=== PATIENT | male | born 1940 | race American Indian/Alaskan Native ===

== ENCOUNTER 2021-11-13 12:06 | Inpatient (IN) | payer MEDICARE ==
[2021-11-13] MEDS ORDERED: SODIUM CHLORIDE 0.9% 1000 ML IV SOLN IV ONE (12:13)
--- NOTE | 2021-11-13 12:27 | Emergency Department Report ---
HPI - General Chief Complaint: Altered Mental Status Time Seen by Provider: 11/13/21 12:24 - HPI HPI: Charge nurse triage The patient is 80-year-old male present with chief complaint of altered mental status. Patient was sent from [facility] after is found to be less responsive this morning. Patient has a history of dementia but is normally conversational per EMS. Per EMS the patient is COVID-positive ED Past Medical Hx - Past Medical History Hx Hypertension: Yes Hx CVA: Yes Hx Diabetes: Yes Hx Dementia: Yes (Alzheimer's) - Surgical History Past Surgical History?: No - Family History Family history: no significant - Social History Smoking Status: Unknown if ever smoked ED Review of Systems ROS: Stated complaint: AMS Other details as noted in HPI Comment: Unobtainable due to pts medical conditions Physical Exam - Physical Exam Vital Signs: Vital Signs 11/13/21 12:07 Pulse Rate 135 H Blood Pressure 128/77 [Left] O2 Sat by Pulse 95 Oximetry Physical Exam: GENERAL: The patient is well-developed well-nourished male lying on stretcher not appearing to be in acute distress. [] HEENT: Normocephalic. Atraumatic. Extraocular motions are intact. Patient has moist mucous membranes. NECK: Supple. Trachea midline CHEST/LUNGS: Clear to auscultation. There is no respiratory distress noted. HEART/CARDIOVASCULAR: Regular. There is tachycardia. There is no gallop rub or murmur. ABDOMEN: Abdomen is soft, nontender. Patient has normal bowel sounds. There is no abdominal distention. SKIN: There is no rash. There is no edema. There is no diaphoresis. NEURO: The patient is lethargic and responds to tactile stimuli only MUSCULOSKELETAL: There is no evidence of acute injury. ED Course Vital Signs 11/13/21 12:07 Pulse Rate 135 H Blood Pressure 128/77 [Left] O2 Sat by Pulse 95 Oximetry ED Medical Decision Making - Lab Data Result diagrams: 11/13/21 12:26 11/13/21 12:26 Laboratory Tests 11/13/21 11/13/21 11/13/21 12:26 12:26 12:26 WBC 8.4 RBC 5.36 H Hgb 17.0 H Hct 52.7 H MCV 98 H MCH 32 MCHC 32 RDW 13.6 Plt Count 363 Lymph % (Auto) 28.6 [place] % (Auto) 9.5 H Eos % (Auto) 0.5 Baso % (Auto) 1.0 Lymph # (Auto) 2.4 [place] # (Auto) 0.8 Eos # (Auto) 0.0 Baso # (Auto) 0.1 Seg Neutrophils % 60.4 Seg Neutrophils # 5.1 D-Dimer 542.60 H VBG pH Sodium 151 H Potassium 3.8 Chloride 111.1 H Carbon Dioxide 18 L Anion Gap 26 BUN 21 H Creatinine 1.2 Estimated GFR > 60 BUN/Creatinine Ratio 18 Glucose 126 H Lactic Acid Calcium 10.7 H Ferritin Total Bilirubin 0.80 AST 59 H ALT 58 H Alkaline Phosphatase 97 Lactate Dehydrogenase 209 H C-Reactive Protein < 0.03 Total Protein 8.0 Albumin 3.9 Albumin/Globulin Ratio 1.0 Procalcitonin 11/13/21 11/13/21 11/13/21 12:26 12:26 12:26 WBC RBC Hgb Hct MCV MCH MCHC RDW Plt Count Lymph % (Auto) [place] % (Auto) Eos % (Auto) Baso % (Auto) Lymph # (Auto) [place] # (Auto) Eos # (Auto) Baso # (Auto) Seg Neutrophils % Seg Neutrophils # D-Dimer VBG pH Sodium Potassium Chloride Carbon Dioxide Anion Gap BUN Creatinine Estimated GFR BUN/Creatinine Ratio Glucose Lactic Acid 8.40 H* Calcium Ferritin 200.3 Total Bilirubin AST ALT Alkaline Phosphatase Lactate Dehydrogenase C-Reactive Protein Total Protein Albumin Albumin/Globulin Ratio Procalcitonin 0.05 11/13/21 12:42 WBC RBC Hgb Hct MCV MCH MCHC RDW Plt Count Lymph % (Auto) [place] % (Auto) Eos % (Auto) Baso % (Auto) Lymph # (Auto) [place] # (Auto) Eos # (Auto) Baso # (Auto) Seg Neutrophils % Seg Neutrophils # D-Dimer VBG pH 7.338 Sodium Potassium Chloride Carbon Dioxide Anion Gap BUN Creatinine Estimated GFR BUN/Creatinine Ratio Glucose Lactic Acid Calcium Ferritin Total Bilirubin AST ALT Alkaline Phosphatase Lactate Dehydrogenase C-Reactive Protein Total Protein Albumin Albumin/Globulin Ratio Procalcitonin - Radiology Data Radiology results: report reviewed (Chest x-ray), image reviewed (Chest x-ray) interpreted by me: Chest x-ray-mild interstitial process. No focal infiltrate. No pneumothorax [facility] [address] [place] [address] XRay Report Signed Patient: ESTER LUJAN MR#: [id number] 9 : 1940 Acct:[id number] Age/Sex: 80 / M ADM Date: 11/13/21 Loc: ED Attending Dr: Ordering Physician: ERICK STEPHENS MD Date of Service: 11/13/21 Procedure(s): XR chest 1V ap Accession Number(s): [id number] cc: ERICK STEPHENS MD Fluoro Time In Minutes: CHEST 1 VIEW 11/13/2021 1:19 PM INDICATION / CLINICAL INFORMATION: Tach ycardia, COVID-positive. COMPARISON: None available. FINDINGS: SUPPORT DEVICES: None. HEART / MEDIASTINUM: No significant abnormality. LUNGS / PLEURA: Mild interstitial process in bilateral lungs without focal consolidation No pneumothorax. Signer Name: Rebel Solis MD Signed: 11/13/2021 1:26 PM W orkstation Name: [id number] Transcribed By: CW Dictated By: RICHELLE SOLIS MD Electronically Authenticated By: RICHELLE SOLIS MD Signed Date/Time: 11/13/21 1326 DD/ 1325 TD/TT: Print Cancel - Differential Diagnosis Sepsis Critical care attestation.: If time is entered above; I have spent that time in minutes in the direct care of this critically ill patient, excluding procedure time. ED Disposition Clinical Impression: Altered mental status, Tachycardia, Lab test positive for detection of COVID-19 virus Disposition: ADMITTED INPATIENT Is pt being admited?: Yes Does the pt Need Aspirin: No Condition: Fair Time of Disposition: 13:58
[2021-11-13 12:55] LABS: Basophils # (Auto) 0.1 K/mm3 (0.0-0.1); Eosinophils % (Auto) 0.5 % (0.0-4.3); Hematocrit 52.7 % (35.5-45.6); Lymphocytes # (Auto) 2.4 K/mm3 (1.2-5.4); Lymphocytes % (Auto) 28.6 % (13.4-35.0); Mean Corpuscular HGB Conc 32 % (32-34); Mean Corpuscular Volume 98 fl (84-94); Monocytes # (Auto) 0.8 K/mm3 (0.0-0.8); Monocytes % (Auto) 9.5 % (0.0-7.3); Platelet Count 363 K/mm3 (140-440); Red Blood Count 5.36 M/mm3 (3.65-5.03); Red Cell Distribution Width 13.6 % (13.2-15.2)
[2021-11-13 13:10] LABS: Alanine Aminotransferase 58 units/L (7-56); Albumin 3.9 g/dL (3.9-5); BUN/Creatinine Ratio 18; Blood Urea Nitrogen 21 mg/dL (9-20); C-Reactive Protein < 0.03 mg/dL (0.00-1.30); Calcium 10.7 mg/dL (8.4-10.2); Hemolysis Index 9
--- NOTE | 2021-11-13 13:26 | History and Physical Report ---
History of Present Illness Chief complaint: He is weak, having problems breathing, and is more confused History of present illness: 80 YO Male Snf Facility Resident at [facility] with Vascular Dementia, Cerebral Atherosclerosis, Malnutrition, Debility, Alzheimers Disease with a FAST Score of 7C, DM, HTN, Coronavirus Infection presents to ED for evaluation. Patient is confused with diminished cognition and is unable to write history at the time my evaluation. Patient history taken from EMS staff, ED staff, as well as retirement facility staff. As per staff the patient had experienced recent diagnosis of coronavirus infection but has also experienced concomitant increased weakness, difficulty breathing, diminished oral intake, and decreased interaction with staff. EMS was notified and upon arrival the patient was found to be in distress and subsequently transported to [facility] for further care and evaluation of the aforementioned symptoms. The patient was seen and evaluated in the emergency department. All lab and imaging studies reviewed. Patient underwent chest x- ray and was found to have pneumonia. Patient was found to have a pulse oximetry of 88% on room air which is consistent with acute hypoxemic respiratory failure. Patient admitted to medical floor and initiated on pneumonia protocol as well as coronavirus protocol. Patient has diminished cognition but has a positive gag reflex and is able to protect his airway without difficulty. No prior ad mission for review. All medication listed at time of admission has been reconciled. Advanced care planning conducted in ED. Past History Past Medical History: diabetes, hypertension Past Surgical History: No surgical history, Other (Reviewed) Social history: . denies: smoking, alcohol abuse, prescription drug abuse Family history: diabetes, hypertension Medications and Allergies Allergies Allergy/AdvReac Type Severity Reaction Status Date / Time aspirin AdvReac Unknown Verified 11/13/21 12:10 Review of Systems ROS unobtainable: due to mental status Exam - Constitutional Vitals: Temp Pulse Resp BP Pulse Ox 135 H 128/77 95 11/13/21 12:07 11/13/21 12:07 11/13/21 12:07 General appearance: Present: mild distress - EENT Eyes: Present: PERRL ENT: hearing intact, clear oral mucosa, hearing decreased - Neck Neck: Present: supple, normal ROM - Respiratory Respiratory effort: labored, accessory muscle use Respiratory: bilateral: diminished, rhonchi - Cardiovascular Heart Sounds: Present: S1 & S2. Absent: rub, click - Extremities Extremities: pulses symmetrical, No edema Peripheral Pulses: within normal limits - Abdominal General gastrointestinal: Present: soft, non-tender, non-distended, normal bowel sounds Male genitourinary: Present: normal - Integumentary Integumentary: Present: clear, dry - Musculoskeletal Musculoskeletal: generalized weakness - Psychiatric Psychiatric: no appropriate mood/affect, no intact judgment & insight, no memory intact - Neurologic Neurologic: CNII-XII intact, no focal deficits, moves all extremities, no gait normal Results - Labs CBC & Chem 7: 11/13/21 12:11/13/21 12: Labs: Abnormal lab results 11/13/21 11/13/21 11/13/21 Range/Units 12: 12: 12: RBC 5.36 H (3.65-5.03) M/mm3 Hgb 17.0 H (11.8-15.2) gm/dl Hct 52.7 H (35.5-45.6) % MCV 98 H (84-94) fl [place] % (Auto) 9.5 H (0.0-7.3) % D-Dimer 542.60 H (0-234) ng/mlDDU Sodium 151 H (137-145) mmol/L Chloride 111.1 H (98-107) mmol/L Carbon Dioxide 18 L (22-30) mmol/L BUN 21 H (9-20) mg/dL Glucose 126 H (75-100) mg/dL Lactic Acid (0.7-2.0) mmol/L Calcium 10.7 H (8.4-10.2) mg/dL AST 59 H (5-40) units/L ALT 58 H (7-56) units/L Lactate Dehydrogenase 209 H (91-180) units/L 11/13/21 Range/Units 12: RBC (3.65-5.03) M/mm3 Hgb (11.8-15.2) gm/dl Hct (35.5-45.6) % MCV (84-94) fl [place] % (Auto) (0.0-7.3) % D-Dimer (0-234) ng/mlDDU Sodium (137-145) mmol/L Chloride (98-107) mmol/L Carbon Dioxide (22-30) mmol/L BUN (9-20) mg/dL Glucose (75-100) mg/dL Lactic Acid 8.40 H* (0.7-2.0) mmol/L Calcium (8.4-10.2) mg/dL AST (5-40) units/L ALT (7-56) units/L Lactate Dehydrogenase (91-180) units/L Assessment and Plan - Patient Problems (1) Acute hypoxemic respiratory failure Current Visit: Yes Status: Acute Plan to address problem: Chest x-ray, supplemental oxygen, pulse oximetry, nebulizer therapy, pulmonary toilet. We will consider high flow supplemental oxygen if patient is unable to maintain pulse oximetry on supplemental oxygen via nasal cannula. (2) Coronavirus infection Current Visit: Yes Status: Acute Plan to address problem: Coronavirus protocol: Vitamin C therapy, vitamin D therapy, zinc therapy, prophylactic anticoagulation, IV steroid therapy, supportive care, supplemental oxygen. (3) Pneumonia Current Visit: Yes Status: Acute Plan to address problem: Pneumonia protocol: Chest x-ray, CBC, CMP, supplemental oxygen, pulse oximetry, nebulizer therapy, IV antibiotic therapy. (4) Vascular dementia Current Visit: Yes Status: Acute Qualifiers: Dementia behavioral disturbance: without behavioral disturbance Qualified Code(s): F01.50 - Vascular dementia without behavioral disturbance Plan to address problem: Verbal prompting, verbal redirection, benzodiazepine therapy as clinically indicated. (5) Cerebral atherosclerosis Current Visit: Yes Status: Acute Plan to address problem: Risk factor reduction, antiplatelet therapy as clinically indicated. (6) Malnutrition Current Visit: Yes Status: Acute Qualifiers: Malnutrition type: protein-calorie malnutrition Protein-calorie malnutrition severity: moderate Qualified Code(s): E44.0 - Moderate protein- calorie malnutrition Plan to address problem: Encourage increased protein intake when awake and alert only, dietary supplementation. (7) DVT prophylaxis Current Visit: Yes Status: Acute Plan to address problem: SCDs bilateral lower extremities while in bed, continue prophylactic anticoagulation. (8) Advance care planning Current Visit: Yes Status: Acute Plan to address problem: Disease if she has conducted, care plan discussed, diagnosis discussed, prognosis discussed, patient is full code. +30 minutes.
[2021-11-13] MEDS ORDERED: oxyCODONE /ACETAMINOPHEN 5-325MG TAB PO PRN (13:27)
[2021-11-13] MEDS ORDERED: HYDROmorphone 1 MG/1 ML INJ IV PRN (13:27)
[2021-11-13] MEDS ORDERED: ONDANSETRON 4 MG/2 ML INJ IV PRN (13:27)
[2021-11-13] MEDS ORDERED: ALBUTEROL 2.5 MG/3 ML NEBU IH PRN (13:27)
[2021-11-13] MEDS ORDERED: ACETAMINOPHEN 325 MG TAB PO PRN (13:27)
--- NOTE | 2021-11-13 13:30 | XRay Report ---
CHEST 1 VIEW 11/13/2021 1:19 PM INDICATION / CLINICAL INFORMATION: Tachycardia, COVID-positive. COMPARISON: None available. FINDINGS: SUPPORT DEVICES: None. HEART / MEDIASTINUM: No significant abnormality. LUNGS / PLEURA: Mild interstitial process in bilateral lungs without focal consolidation No pneumotho rax. Signer Name: Rebel Solis MD Signed: 11/13/2021 1:26 PM Workstation Name: [id number]
[2021-11-13] MEDS: methylPREDNISolone Sod Succinate 40 MG/1 ML INJ IV SCH (16:25)
[2021-11-13] MEDS: AZITHROMYCIN/NS 500 MG/250 ML 500 MG/250 ML BAG IV SCH (16:27)
[2021-11-13] MEDS: cefTRIAXone/NS 2 GM/100 ML 2 GM/100 ML BAG IV SCH (17:19)
[2021-11-14] MEDS ORDERED: methylPREDNISolone Sod Succinate 125 MG/2 ML INJ IV ONE (00:06)
[2021-11-14] MEDS ORDERED: SODIUM CHLORIDE 0.9% 1000 ML 2,000 ML ONE (00:09)
[2021-11-14] MEDS: ZINC SULFATE 220 MG CAP PO SCH ×3 (00:13→23:39)
[2021-11-14] MEDS: ASCORBIC ACID 500 MG TAB PO SCH ×3 (00:14→23:39)
[2021-11-14] MEDS: methylPREDNISolone Sod Succinate 40 MG/1 ML INJ IV SCH ×4 (00:17→23:38)
[2021-11-14] MEDS: HEPARIN 5,000 UNIT/1 ML VIAL SUB-Q SCH ×3 (00:17→23:33)
[2021-11-14 05:11] LABS: Hematocrit 45.7 % (35.5-45.6); Hemoglobin 14.4 gm/dl (11.8-15.2); Lymphocytes # (Auto) 1.2 K/mm3 (1.2-5.4); Lymphocytes % (Auto) 12.6 % (13.4-35.0); Mean Corpuscular HGB Conc 32 % (32-34); Mean Corpuscular Volume 98 fl (84-94); Monocytes # (Auto) 0.2 K/mm3 (0.0-0.8); Monocytes % (Auto) 1.8 % (0.0-7.3); Platelet Count 284 K/mm3 (140-440); Red Blood Count 4.64 M/mm3 (3.65-5.03); Red Cell Distribution Width 13.5 % (13.2-15.2)
[2021-11-14 05:20] LABS: BUN/Creatinine Ratio 21; Blood Urea Nitrogen 19 mg/dL (9-20); Calcium 8.8 mg/dL (8.4-10.2); Hemolysis Index 18
[2021-11-14] MEDS ORDERED: CHOLECALCIFEROL (VIT D3) 400 UNIT TAB PO SCH (10:00)
--- NOTE | 2021-11-14 12:34 | Progress Note ---
Assessment and Plan - Patient Problems (1) Acute hypoxemic respiratory failure Current Visit: Yes Status: Acute Plan to address problem: Chest x-ray, supplemental oxygen, pulse oximetry, nebulizer therapy, pulmonary toilet. We will consider high flow supplemental oxygen if patient is unable to maintain pulse oximetry on supplemental oxygen via nasal cannula. (2) Coronavirus infection Current Visit: Yes Status: Acute Plan to address problem: Coronavirus protocol: Vitamin C therapy, vitamin D therapy, zinc therapy, prophylactic anticoagulation, IV steroid therapy, supportive care, supplemental oxygen. (3) Pneumonia Current Visit: Yes Status: Acute Plan to address problem: Pneumonia protocol: Chest x-ray, CBC, CMP, supplemental oxygen, pulse oximetry, nebulizer therapy, IV antibiotic therapy. (4) Vascular dementia Current Visit: Yes Status: Acute Qualifiers: Dementia behavioral disturbance: without behavioral disturbance Qualified Code(s): F01.50 - Vascular dementia without behavioral disturbance Plan to address problem: Verbal prompting, verbal redirection, benzodiazepine therapy as clinically indicated. (5) Cerebral atherosclerosis Current Visit: Yes Status: Acute Plan to address problem: Risk factor reduction, antiplatelet therapy as clinically indicated. (6) Malnutrition Current Visit: Yes Status: Acute Qualifiers: Malnutrition type: protein-calorie malnutrition Protein-calorie malnutrition severity: moderate Qualified Code(s): E44.0 - Moderate protein- calorie malnutrition Plan to address problem: Encourage increased protein intake when awake and alert only, dietary supplementation. (7) DVT prophylaxis Current Visit: Yes Status: Acute Plan to address problem: SCDs bilateral lower extremities while in bed, continue prophylactic anticoagulation. (8) Advance care planning Current Visit: Yes Status: Acute Plan to address problem: Disease if she has conducted, care plan discussed, diagnosis discussed, pro gnosis discussed, patient is full code. +30 minutes. 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 Patient symptoms mildly improved. Patient continues to have diminished cognition. Patient is at high risk for aspiration. No reports of pain. No reported nursing events. Hospitalist Physical - Constitutional Vitals: Temp Pulse Resp BP Pulse Ox 89 17 140/82 95 11/14/21 07:00 11/14/21 08:27 11/14/21 07:00 11/14/21 08:27 General appearance: Present: mild distress - EENT ENT: hearing decreased - Respiratory Respiratory effort: labored Respiratory: bilateral: diminished, rhonchi - Cardiovascular Rhythm: regular Heart Sounds: Present: S1 & S2 - Extremities Extremities: no ischemia Peripheral Pulses: within normal limits - Abdominal General gastrointestinal: soft, non-tender, non-distended - Integumentary Integumentary: Present: clear, dry - Psychiatric Psychiatric: cooperative - Neurologic Neurologic: CNII-XII intact Results - Labs CBC & Chem 7: 11/14/21 04:26 11/14/21 04:26 Labs: Laboratory Last Values WBC 9.2 K/mm3 (4.5-11.0) 11/14/21 04:26 RBC 4.64 M/mm3 (3.65-5.03) 11/14/21 04:26 Hgb 14.4 gm/dl (11.8-15.2) 11/14/21 04:26 Hct 45.7 % (35.5-45.6) H D 11/14/21 04:26 MCV 98 fl (84-94) H 11/14/21 04:26 MCH 31 pg (28-32) 11/14/21 04:26 MCHC 32 % (32-34) 11/14/21 04:26 RDW 13.5 % (13.2-15.2) 11/14/21 04:26 Plt Count 284 K/mm3 (140-440) 11/14/21 04:26 Lymph % (Auto) 12.6 % (13.4-35.0) L 11/14/21 04:26 [place] % (Auto) 1.8 % (0.0-7.3) 11/14/21 04:26 Eos % (Auto) 0.0 % (0.0-4.3) 11/14/21 04:26 Baso % (Auto) [employer] 11/14/21 04:26 Lymph # (Auto) 1.2 K/mm3 (1.2-5.4) 11/14/21 04:26 [place] # (Auto) 0.2 K/mm3 (0.0-0.8) 11/14/21 04:26 Eos # (Auto) 0.0 K/mm3 (0.0-0.4) 11/14/21 04:26 Baso # (Auto) 0.0 K/mm3 (0.0-0.1) 11/14/21 04:26 Seg Neutrophils % 85.2 % (40.0-70.0) H 11/14/21 04:26 Seg Neutrophils # 7.8 K/mm3 (1.8-7.7) H 11/14/21 04:26 D-Dimer 542.60 ng/mlDDU (0-234) H 11/13/21 12:26 VBG pH 7.338 (7.320-7.420) 11/13/21 12:42 Sodium 150 mmol/L (137-145) H 11/14/21 04:26 Potassium 4.2 mmol/L (3.6-5.0) 11/14/21 04:26 Chloride 117.1 mmol/L (98-107) H 11/14/21 04:26 Carbon Dioxide 21 mmol/L (22-30) L 11/14/21 04:26 Anion Gap 16 mmol/L 11/14/21 04:26 BUN 19 mg/dL (9-20) 11/14/21 04:26 Creatinine 0.9 mg/dL (0.8-1.3) 11/14/21 04:26 Estimated GFR > 60 ml/min 11/14/21 04:26 BUN/Creatinine Ratio 21 % 11/14/21 04:26 Glucose 116 mg/dL (75-100) H 11/14/21 04:26 Lactic Acid 1.90 mmol/L (0.7-2.0) 11/13/21 22:54 Calcium 8.8 mg/dL (8.4-10.2) D 11/14/21 04:26 Ferritin 200.3 ng/mL (30.0-300.0) 11/13/21 12:26 Total Bilirubin 0.80 mg/dL (0.1-1.2) 11/13/21 12:26 AST 59 units/L (5-40) H 11/13/21 12:26 ALT 58 units/L (7-56) H 11/13/21 12:26 Alkaline Phosphatase 97 units/L (35-129) 11/13/21 12:26 Lactate Dehydrogenase 209 units/L (91-180) H 11/13/21 12:26 C-Reactive Protein < 0.03 mg/dL (0.00-1.30) 11/13/21 12:26 Total Protein 8.0 g/dL (6.3-8.2) 11/13/21 12: Albumin 3.9 g/dL (3.9-5) 11/13/21 12: Albumin/Globulin Ratio 1.0 % 11/13/21 12:26 Procalcitonin 0.05 ng/mL (<0.15) 11/13/21 12:26 Microbiology: Microbiology 11/13/21 12:26 Peripheral/Venous Blood Culture - Preliminary Culture in Progress 11/13/21 12:26 Peripheral/Venous Blood Culture - Preliminary Culture in Progress Active Medications - Current Medications Current Medications: Generic Name Dose Route Start Last Admin Trade Name Freq PRN Reason Stop Dose Admin Acetaminophen 650 mg 11/13/21 13:27 Acetaminophen 325 Mg Tab PO Q4H PRN Pain MILD(1-3)/Fever >100.5/LOVE Albuterol 2.5 mg 11/13/21 13:27 Albuterol 2.5 Mg/3 Ml Nebu IH Q4HRT PRN Shortness Of Breath Ascorbic Acid 500 mg 11/13/21 22:00 11/14/21 10:00 Ascorbic Acid 500 Mg Tab PO Not Given BID [facility] Cholecalciferol 1,000 unit 11/14/21 10:00 11/14/21 10:00 Cholecalciferol (Vit D3) 400 Unit Tab PO Not Given QDAY [facility] Heparin Sodium (Porcine) 5,000 unit 11/13/21 22:00 11/14/21 12:25 Heparin 5,000 Unit/1 Ml Vial SUB-Q 5,000 unit Q12HR DEVENDRA Administration Hydromorphone HCl 0.5 mg 11/13/21 13:27 Hydromorphone 1 Mg/1 Ml Inj IV Q23H PRN Pain , Severe (7-10) Ceftriaxone Sodium 2 gm in 100 mls @ 200 mls/hr 11/13/21 14:00 11/13/21 17:19 Rocephin/Ns 2 Gm/100 Ml IV 11/17/21 14:29 200 mls/hr Q24H DEVENDRA Administration Protocol Azithromycin 500 mg in 250 mls @ 250 mls/hr 11/13/21 14:00 11/13/21 16:27 Zithromax/Ns IV 11/17/21 14:59 250 mls/hr Q24H DEVENDRA Administration Protocol Methylprednisolone Sodium Succinate 40 mg 11/13/21 14:00 11/14/21 06:42 Methylprednisolone Sod Succinate 40 Mg/1 Ml Inj IV 40 mg Q8HR DEVENDRA Administration Ondansetron HCl 4 mg 11/13/21 13:27 Ondansetron 4 Mg/2 Ml Inj IV Q8H PRN Nausea And Vomiting Oxycodone/Acetaminophen 1 tab 11/13/21 13:27 Oxycodone /Acetaminophen 5-325mg Tab PO Q16H PRN Pain, Moderate (4-6) Sodium Chloride 10 ml 11/13/21 22:00 11/14/21 10:00 Sodium Chloride 0.9% 10 Ml Flush Syringe IV 10 ml BID DEVENDRA Administration Sodium Chloride 10 ml 11/13/21 13:27 Sodium Chloride 0.9% 10 Ml Flush Syringe IV PRN PRN LINE FLUSH Zinc Sulfate 220 mg 11/13/21 22:00 11/14/21 12:28 Zinc Sulfate 220 Mg Cap PO Not Given BID DEVENDRA
[2021-11-14] MEDS: cefTRIAXone/NS 2 GM/100 ML 2 GM/100 ML BAG IV SCH (20:06)
[2021-11-14] MEDS: AZITHROMYCIN/NS 500 MG/250 ML 500 MG/250 ML BAG IV SCH (23:25)
[2021-11-15] MEDS: methylPREDNISolone Sod Succinate 40 MG/1 ML INJ IV SCH ×3 (05:37→21:37)
[2021-11-15] MEDS: ZINC SULFATE 220 MG CAP PO SCH ×2 (09:15→21:38)
[2021-11-15] MEDS: ASCORBIC ACID 500 MG TAB PO SCH ×2 (09:15→21:37)
[2021-11-15] MEDS: HEPARIN 5,000 UNIT/1 ML VIAL SUB-Q SCH ×2 (09:15→21:37)
[2021-11-15] MEDS: CHOLECALCIFEROL (VIT D3) 1000 UNIT (25 mcg) TAB PO SCH (09:22)
--- NOTE | 2021-11-15 12:15 | Progress Note ---
Assessment and Plan - Patient Problems (1) Acute hypoxemic respiratory failure Current Visit: Yes Status: Acute Plan to address problem: Chest x-ray, supplemental oxygen, pulse oximetry, nebulizer therapy, pulmonary toilet. We will consider high flow supplemental oxygen if patient is unable to maintain pulse oximetry on supplemental oxygen via nasal cannula. (2) Coronavirus infection Current Visit: Yes Status: Acute Plan to address problem: Coronavirus protocol: Vitamin C therapy, vitamin D therapy, zinc therapy, prophylactic anticoagulation, IV steroid therapy, supportive care, supplemental oxygen. (3) Pneumonia Current Visit: Yes Status: Acute Plan to address problem: Pneumonia protocol: Chest x-ray, CBC, CMP, supplemental oxygen, pulse oximetry, nebulizer therapy, IV antibiotic therapy. (4) Vascular dementia Current Visit: Yes Status: Acute Qualifiers: Dementia behavioral disturbance: without behavioral disturbance Qualified Code(s): F01.50 - Vascular dementia without behavioral disturbance Plan to address problem: Verbal prompting, verbal redirection, benzodiazepine therapy as clinically indicated. (5) Cerebral atherosclerosis Current Visit: Yes Status: Acute Plan to address problem: Risk factor reduction, antiplatelet therapy as clinically indicated. (6) Malnutrition Current Visit: Yes Status: Acute Qualifiers: Malnutrition type: protein-calorie malnutrition Protein-calorie malnutrition severity: moderate Qualified Code(s): E44.0 - Moderate protein- calorie malnutrition Plan to address problem: Encourage increased protein intake when awake and alert only, dietary supplementation. (7) DVT prophylaxis Current Visit: Yes Status: Acute Plan to address problem: SCDs bilateral lower extremities while in bed, continue prophylactic anticoagulation. (8) Advance care planning Current Visit: Yes Status: Acute Plan to address problem: Disease if she has conducted, care plan discussed, diagnosis discussed, pro gnosis discussed, patient is full code. +30 minutes. History Interval history: 80 YO Male [facility] Resident HD #3 with Vascular Dementia, Cer ebral Atherosclerosis, Malnutrition, Debility, Alzheimers Disease with a FAST Score of 7C, DM, HTN, Coronavirus Infection, Acute Respiratory Failure, Debility who convalesced well overnight. Patient symptoms improved. Patient continues to have diminished cognition. D/C Planning to SNF in am if no decompensation overnight. Hospitalist Physical - Constitutional Vitals: Temp Pulse Resp BP Pulse Ox 97.9 F 117 H 21 121/86 98 11/14/21 19:20 11/15/21 01:00 11/15/21 01:00 11/15/21 01:20 11/15/21 11:49 General appearance: Present: mild distress - EENT Eyes: Present: PERRL ENT: hearing decreased - Neck Neck: Present: supple - Respiratory Respiratory effort: normal Respiratory: bilateral: diminished, rhonchi - Cardiovascular Rhythm: regular Heart Sounds: Present: S1 & S2 - Extremities Extremities: no ischemia Peripheral Pulses: within normal limits - Abdominal General gastrointestinal: soft, non-tender, non-distended - Integumentary Integumentary: Present: clear, dry - Psychiatric Psychiatric: cooperative - Neurologic Neurologic: CNII-XII intact Results - Labs CBC & Chem 7: 11/14/21 04:26 11/14/21 04:26 Labs: Laboratory Last Values WBC 9.2 K/mm3 (4.5-11.0) 11/14/21 04:26 RBC 4.64 M/mm3 (3.65-5.03) 11/14/21 04:26 Hgb 14.4 gm/dl (11.8-15.2) 11/14/21 04:26 Hct 45.7 % (35.5-45.6) H D 11/14/21 04:26 MCV 98 fl (84-94) H 11/14/21 04:26 MCH 31 pg (28-32) 11/14/21 04:26 MCHC 32 % (32-34) 11/14/21 04:26 RDW 13.5 % (13.2-15.2) 11/14/21 04:26 Plt Count 284 K/mm3 (140-440) 11/14/21 04:26 Lymph % (Auto) 12.6 % (13.4-35.0) L 11/14/21 04:26 Wallace % (Auto) 1.8 % (0.0-7.3) 11/14/21 04:26 Eos % (Auto) 0.0 % (0.0-4.3) 11/14/21 04:26 Baso % (Auto) [employer] 11/14/21 04:26 Lymph # (Auto) 1.2 K/mm3 (1.2-5.4) 11/14/21 04:26 Wallace # (Auto) 0.2 K/mm3 (0.0-0.8) 11/14/21 04:26 Eos # (Auto) 0.0 K/mm3 (0.0-0.4) 11/14/21 04:26 Baso # (Auto) 0.0 K/mm3 (0.0-0.1) 11/14/21 04:26 Seg Neutrophils % 85.2 % (40.0-70.0) H 11/14/21 04:26 Seg Neutrophils # 7.8 K/mm3 (1.8-7.7) H 11/14/21 04:26 D-Dimer 542.60 ng/mlDDU (0-234) H 11/13/21 12:26 VBG pH 7.338 (7.320-7.420) 11/13/21 12:42 Sodium 150 mmol/L (137-145) H 11/14/21 04:26 Potassium 4.2 mmol/L (3.6-5.0) 11/14/21 04:26 Chloride 117.1 mmol/L (98-107) H 11/14/21 04:26 Carbon Dioxide 21 mmol/L (22-30) L 11/14/21 04:26 Anion Gap 16 mmol/L 11/14/21 04:26 BUN 19 mg/dL (9-20) 11/14/21 04:26 Creatinine 0.9 mg/dL (0.8-1.3) 11/14/21 04:26 Estimated GFR > 60 ml/min 11/14/21 04:26 BUN/Creatinine Ratio 21 % 11/14/21 04:26 Glucose 116 mg/dL (75-100) H 11/14/21 04:26 Lactic Acid 1.90 mmol/L (0.7-2.0) 11/13/21 22:54 Calcium 8.8 mg/dL (8.4-10.2) D 11/14/21 04:26 Ferritin 200.3 ng/mL (30.0-300.0) 11/13/21 12:26 Total Bilirubin 0.80 mg/dL (0.1-1.2) 11/13/21 12:26 AST 59 units/L (5-40) H 11/13/21 12:26 ALT 58 units/L (7-56) H 11/13/21 12:26 Alkaline Phosphatase 97 units/L (35-129) 11/13/21 12: Lactate Dehydrogenase 209 units/L (91-180) H 11/13/21 12: C-Reactive Protein < 0.03 mg/dL (0.00-1.30) 11/13/21 12: Total Protein 8.0 g/dL (6.3-8.2) 11/13/21 12: Albumin 3.9 g/dL (3.9-5) 11/13/21: Albumin/Globulin Ratio 1.0 % 11/13/21 12: Procalcitonin 0.05 ng/mL (<0.15) 11/13/21 12: Coronavirus (PCR) Positive (Negative) A 11/14/21 08:27 Microbiology: Microbiology 11/13/21 12: Peripheral/Venous Blood Culture - Preliminary NO GROWTH AFTER 24 HOURS 11/13/21 12: Peripheral/Venous Blood Culture - Preliminary NO GROWTH AFTER 24 HOURS Valladares/IV: Voiding Method Indwelling Catheter Active Medications - Current Medications Current Medications: Generic Name Dose Route Start Last Admin Trade Name Freq PRN Reason Stop Dose Admin Acetaminophen 650 mg 11/13/21 13:27 Acetaminophen 325 Mg Tab PO Q4H PRN Pain MILD(1-3)/Fever >100.5/LOVE Albuterol 2.5 mg 11/13/21 13:27 Albuterol 2.5 Mg/3 Ml Nebu IH Q4HRT PRN Shortness Of Breath Ascorbic Acid 500 mg 11/13/21 22:00 11/15/21 09:15 Ascorbic Acid 500 Mg Tab PO 500 mg BID DEVENDRA Administration Cholecalciferol 1,000 unit 11/15/21 10:00 11/15/21 09:22 Cholecalciferol (Vit D3) 1000 Unit (25 Mcg) Tab PO 1,000 unit QDAY DEVENDRA Administration Heparin Sodium (Porcine) 5,000 unit 11/13/21 22:00 11/15/21 09:15 Heparin 5,000 Unit/1 Ml Vial SUB-Q 5,000 unit Q12HR DEVENDRA Administration Hydromorphone HCl 0.5 mg 11/13/21 13:27 11/14/21 19:36 Hydromorphone 1 Mg/1 Ml Inj IV 0.5 mg Q23H PRN Administration Pain , Severe (7-10) Ceftriaxone Sodium 2 gm in 100 mls @ 200 mls/hr 11/13/21 14:00 11/14/21 20:06 Rocephin/Ns 2 Gm/100 Ml IV 11/17/21 14:29 200 mls/hr Q24H DEVENDRA Administration Protocol Azithromycin 500 mg in 250 mls @ 250 mls/hr 11/13/21 14:00 11/14/21 23:25 Zithromax/Ns IV 11/17/21 14:59 250 mls/hr Q24H DEVENDRA Administration Protocol Methylprednisolone Sodium Succinate 40 mg 11/13/21 14:00 11/15/21 05:37 Methylprednisolone Sod Succinate 40 Mg/1 Ml Inj IV 40 mg Q8HR DEVENDRA Administration Ondansetron HCl 4 mg 11/13/21 13:27 Ondansetron 4 Mg/2 Ml Inj IV Q8H PRN Nausea And Vomiting Oxycodone/Acetaminophen 1 tab 11/13/21 13:27 Oxycodone /Acetaminophen 5-325mg Tab PO Q16H PRN Pain, Moderate (4-6) Sodium Chloride 10 ml 11/13/21 22:00 11/15/21 09:16 Sodium Chloride 0.9% 10 Ml Flush Syringe IV 10 ml BID DEVENDRA Administration Sodium Chloride 10 ml 11/13/21 13:27 Sodium Chloride 0.9% 10 Ml Flush Syringe IV PRN PRN LINE FLUSH Zinc Sulfate 220 mg 11/13/21 22:00 11/15/21 09:15 Zinc Sulfate 220 Mg Cap PO 220 mg BID DEVENDRA Administration
[2021-11-15] MEDS: cefTRIAXone/NS 2 GM/100 ML 2 GM/100 ML BAG IV SCH (14:46)
[2021-11-15] MEDS: AZITHROMYCIN/NS 500 MG/250 ML 500 MG/250 ML BAG IV SCH (14:47)
[2021-11-15] MEDS ORDERED: LORazepam 2 MG/ML VIAL IV PRN (21:12)
[2021-11-16] MEDS: methylPREDNISolone Sod Succinate 40 MG/1 ML INJ IV SCH ×4 (05:45→21:11)
[2021-11-16] MEDS: ASCORBIC ACID 500 MG TAB PO SCH ×2 (10:06→21:01)
[2021-11-16] MEDS: ZINC SULFATE 220 MG CAP PO SCH ×2 (10:06→21:01)
[2021-11-16] MEDS: CHOLECALCIFEROL (VIT D3) 1000 UNIT (25 mcg) TAB PO SCH (10:06)
[2021-11-16] MEDS: HEPARIN 5,000 UNIT/1 ML VIAL SUB-Q SCH ×2 (10:07→21:01)
--- NOTE | 2021-11-16 10:49 | Discharge Summary ---
Providers - Providers Date of Admission: 11/13/21 13:27 Attending physician: ARJUN BYRNE Primary care physician: SOTO MARINO MD Hospitalization Condition: Fair Disposition: 30 STILL A PATIENT - Discharge Diagnoses (1) Acute hypoxemic respiratory failure Status: Acute (2) Coronavirus infection Status: Acute (3) Pneumonia Status: Acute (4) Vascular dementia Status: Acute Qualifiers: Dementia behavioral disturbance: without behavioral disturbance Qualified Code(s): F01.50 - Vascular dementia without behavioral disturbance (5) Cerebral atherosclerosis Status: Acute (6) Malnutrition Status: Acute Qualifiers: Malnutrition type: protein-calorie malnutrition Protein-calorie malnutrition severity: moderate Qualified Code(s): E44.0 - Moderate protein- calorie malnutrition (7) DVT prophylaxis Status: Acute (8) Advance care planning Status: Acute Exam - Constitutional Vitals: Temp Pulse Resp BP Pulse Ox 98.0 F 97 H 20 153/98 98 11/16/21 05:04 11/16/21 05:04 11/16/21 05:04 11/16/21 05:04 11/16/21 05:04 Plan Follow up with: SOTO MARINO MD [Primary Care Provider] - 7 Days
[2021-11-16] MEDS: AZITHROMYCIN/NS 500 MG/250 ML 500 MG/250 ML BAG IV SCH (14:04)
[2021-11-16] MEDS: cefTRIAXone/NS 2 GM/100 ML 2 GM/100 ML BAG IV SCH (14:05)
[2021-11-17 02:54] VITALS: BP 144/78
== END 2021-11-16 22:00 | DRG 177 ==
LOC: ED 12:06 → 3A 13:27
PROVIDERS: ADMIT Internal Medicine; ATTEND Internal Medicine
DX: U07.1 COVID-19 (principal); J96.01 Acute respiratory failure with hypoxia; G93.41 Metabolic encephalopathy; J12.82 Pneumonia due to coronavirus disease 2019; E44.0 Moderate protein-calorie malnutrition; Z20.822 Contact with and (suspected) exposure to COVID-19; Z68.21 Body mass index [BMI] 21.0-21.9, adult; G30.9 Alzheimer's disease, unspecified; F02.80 Dementia in other diseases classified elsewhere, unspecified severity, without behavioral disturbance, psychotic disturbance, mood disturbance, and anxiety; I10 Essential (primary) hypertension; F01.50 Vascular dementia, unspecified severity, without behavioral disturbance, psychotic disturbance, mood disturbance, and anxiety; I67.2 Cerebral atherosclerosis; E11.9 Type 2 diabetes mellitus without complications; Z88.6 Allergy status to analgesic agent; Z86.73 Personal history of transient ischemic attack (TIA), and cerebral infarction without residual deficits; Z82.49 Family history of ischemic heart disease and other diseases of the circulatory system; Z83.3 Family history of diabetes mellitus
CPT/HCPCS: 36415; 71045; 80048; 80053; 82140; 82728; 82805; 83615; 84145; 85025; 85379; 86140; 87040; 94760; G0378; Q0162; J0456; J0696; J1170; J1644; J2060; J2920; J7030; U0003